=== PATIENT | female | born 1975 | race Caucasian/White ===

== ENCOUNTER 2024-07-14 21:35 | Emergency (ER) | payer OTHER, SELFPAY ==
[2024-07-14 21:46] VITALS: BP 166/83; PULSE 71; RESP 18; TEMP 36.7; O2SAT 99; BMI 32.3
--- NOTE | 2024-07-14 21:47 | ED_ITS ---
HPI - Extremity Injury (Upper) General Chief Complaint: Extremity Pain/Injury, Upper Stated Complaint: fall, right arm pain Time Seen by Provider: 07/14/24 21:46 History of Present Illness HPI narrative: This 48-year-old female comes in with an injury to her right wrist. She fell onto her outstretched arm and is complaining pain at the right wrist joint. She has not have any other injury. She did not hit her head or have loss of consciousness. Related Data Home Medications ?Medication ?Instructions ?Recorded ?Confirmed No Known Home Medications 07/14/24 07/14/24 Allergies Allergy/AdvReac Type Severity Reaction Status Date / Time NSAIDS (Non-Steroidal Allergy Intermediate Facial Verified 07/14/24 21:48 Anti-Inflamma Swelling Review of Systems Status of ROS: Reports: 10 or more systems reviewed and unremarkable except as noted in History and below Narrative: Constitutional: No fevers, no weight gain or loss. Eyes: No discharge. No vision changes. HENT: No congestion, no sore throat, no ear pain. Cardiovascular: No chest pain, no palpitations. Respiratory: No shortness of breath, no wheezes, no cough. Gastrointestinal: No abdominal pain, no vomiting, no diarrhea. Genitourinary: No dysuria, no hematuria. Musculoskeletal: Right wrist injury. Skin: No rashes, no pruritis. Neurological: No dizziness, weakness, sensory change, speech change. Endo/Heme/Allergies: No bruising or bleeding. No polydipsia. Pysch: no suicidality, no anxiety, no insomnia. All other systems reviewed and are negative. [facility] Social History Smoking Status: Never smoker Second hand tobacco smoke exposure: No How often do you have a drink containing alcohol: never AUDIT-C Alcohol total score: 0 Non-prescribed substance use: denies use Exam Narrative: Exam Narrative: Constitutional: Well-developed, well-nourished, no acute distress. HEENT: Normocephalic, atraumatic. Neck: Normal range of motion. Nontender. Supple. Heart: Intact distal pulses. Lungs: No chest discomfort. No wheezes, rhonchi, or rales. Abdomen: Nontender. Back: Normal range of motion. Extremities: Diffuse tenderness with mild swelling in the right wrist joint area. No sign of deformity. Skin: Intact. No rash. Warm. No erythema or pallor. Neurologic: No altered sensation. No weakness. Alert and oriented. Psychiatric: No suicidality. No anxiety or depression. No insomnia. Nursing notes and vitals signs are reviewed. Const: Vital Signs, click to edit/add: Vital Signs - 24 hr 07/14/24 21:46 07/14/24 22:45 Temperature 98.0 F 98.0 F Pulse Rate [Right Pulse Oximeter] 71 74 Respiratory Rate 18 18 Blood Pressure [Le ft Upper Arm] 166/83 H 155/78 H Pulse Oximetry 99 99 Oxygen Delivery Me thod Room Air Room Air Course Vital Signs Vital signs: Initial Vital Signs Temperature 98.0 F 07/14/24 21:46 Temperature Source Temporal Artery Scan 07/14/24 21:46 Pulse Rate 71 07/14/24 21:46 Respiratory Rate 18 07/14/24 21:46 Blood Pressure 166/83 H 07/14/24 21:46 Blood Pressure Mean 110 H 07/14/24 21:46 Blood Pressure Position Sitting 07/14/24 21:46 Pulse Oximetry 99 07/14/24 21:46 Oxygen Delivery Method Room Air 07/14/24 21:46 Vital Signs Temperature 98.0 F 07/14/24 21:46 Pulse Rate 71 07/14/24 21:46 Respiratory Rate 18 07/14/24 21:46 Blood Pressure 166/83 H 07/14/24 21:46 Pulse Oximetry 99 07/14/24 21:46 Oxygen Delivery Method Room Air 07/14/24 21:46 Temperature 98.0 F 07/14/24 22:45 Pulse Rate 74 07/14/24 22:45 Respiratory Rate 18 07/14/24 22:45 Blood Pressure 155/78 H 07/14/24 22:45 Pulse Oximetry 99 07/14/24 22:45 Oxygen Delivery Method Room Air 07/14/24 22:45 MDM - Extremity Injury (Upper) MDM Narrative Medical decision making narrative: This patient comes in with an injury to her right wrist. X-ray images are obtained and by my review and with radiology report show no sign of fracture or deformity. The patient is reassured with these results. She did receive a wrist splint and is encouraged to use [id number] medicines as needed and directed. Discharge Plan Discharge Clinical Impression: Sprain and strain of wrist Additional Instructions: Wear wrist splint as needed and increase activity as tolerated. Use tanw-mdt-bouters medicines as needed and directed. Follow up with MD return if worsening. Prescriptions: No Action No Known Home Medications Follow Up/Referrals: Provider,Not a Local [Primary Care Provider] -
--- NOTE | 2024-07-14 21:58 | CRLHL7_ITS ---
For Patients: As a result of the Century Cures Act, medical imaging exams and procedure reports are released immediately into your electronic medical record. You may view this report before your referring provider. If you have questions, please contact your health care provider. Indication: Injury and pain Technique: Right wrist 3 view Comparison: None Findings: Bones: Alignment is normal. No fractures or bone lesions. Joint spaces: Mild 1st carpometacarpal arthrosis. Soft tissues: Unremarkable. Impression: No sign of acute injury in the right wrist. Dictated by Jesus Hargrove MD @ 07/14/2024 10:18:45 PM (Electronically Signed)
[2024-07-14 22:45] VITALS: BP 155/78; PULSE 74; RESP 18; TEMP 36.7; O2SAT 99
--- OUTSIDE RECORDS SUMMARY | 2024-07-14 22:46 | XMS_ITS | Data Portability ---
Author Organization [facility] Address [address] [place] [address] [place] [address] Assessment No assessment recorded. Plan of Treatment Reminders Order Date Submit Date Provider Last Modified By Organization Details Last Modified Time Details Appointments None recorde d. Lab lipid panel, serum 2022 023 ETTA Not available 3 11:27:38 fecal occult blood, stool 2022 023 ETTA Not available 4 20:39:08 CMP, serum or plasma 2022 023 ETTA Not available 3 11:27:38 HbA1c (hemogl obin A1c), blood 2022 023 ETTA Not available 3 14:17:22 glycohe moglobi n, total, blood 2023 024 ETTA Not available 4 13:29:55 pap, LB + HR HPV 2023 024 ETTA Not available 4 14:39:[address] l therapi st referra l 2022 023 [email or web address] Not available 3 03:34:11 Procedures None recorde d. Surgeries None recorde d. Imaging MAMMO, screeni itz villegas al 2023 024 [email or web address] Not available 4 10:14:08 Medication Orders prednis one 10 mg tablet 2022 023 [facility], [address] [place] [address], [id number], 3 14:14:47 Patient TargetsNo targets recorded. Patient InstructionsNo instructions recorded. Reason for Referral Physical Therapist Referral for Thoracic back pain Referring Physician: [facility], Encounter Date: 07/06/2023 Results Created Date Observation Date Name Description Value Unit Range Abnormal Flag Note LastModifiedBy Organization Detail LastModifiedTime Result Notes None recorded. Problems Name Problem SNOMED Code Status Onset Date Resolution Date Notes Provider Name and Address Organization Details Recorded Time Asthma 897299052 Completed 202207/06/[address] Presley [address] [place] [address], [phone], [facility] 12:54:54 Allergic rhinitis 14262643 Active 2022 PAM Presley [address] [place] [address], [phone], [facility] 12:55:08 Problem Notes None recorded. Procedures Surgical History Date Name Laterality Status Provider Name and Address Organization Details Recorded Time 2 Date of Last Pap Smear completed [facility] [address] [place] [address], [phone], [facility] 07/06/2023 12:56:40 1 Date of Last [place]ammogram [place], [phone], [facility] 07/06/2023 12:57:23 Breast Biopsy completed PAM Presley [address] [place] [address], [phone], [facility] 07/06/2023 12:55:47 Imaging Results None recorded. Procedure Notes None recorded. Medical Equipment None Reported. Allergies Allergen ID Allergen Name Allergen Category Reaction Reaction Severity Criticality Documentation Date Start Date Code Code System Note Provider Name and Address Organization Details Recorded Time 2623 Non-stero idal anti-infl ammatory agent (product) medicatio n Not available Not available Not available 07/06/2023 02591 005 SNOMED PAM Presley [address] [place], [phone], [facility] 3 12:53:45 2624 tree and shrub pollen environme nt,medica tion Not available Not available Not available 07/06/2023 PAM Presley [address] [place], [phone], [facility] 3 12:54:13 Medications Name Sig Start Date Stop Date Status Note LastModified by Organization Details LastModified Time prednisone 10 mg tablet Take 5 pills days 1,2; 4 pills days 3,4; 3 pills days 5,6, 2 pills days 7,8 and 1 pill days 9, 10 023 active Not Available Not Available Not Avai lable Vitals Date Recorded Body height Body mass index (BMI) Body weight Oxygen saturation Oxygen saturation in Arterial blood by Pulse oximetry Heart rate Provider Name and Address Organization Details Last Updated DateTime 3 150.5 cm 14 kg/m2 64409.7 5 g 99 % 99 % 65 /min PAM Presley [address] [place], [phone], [facility] 3 12:52:16 Date Recorded Body height Body mass index (BMI) Body weight Respiratory rate Body temperature Oxygen saturation Oxygen saturation in Arterial blood by Pulse oximetry Heart rate Systolic blood pressure Diastolic blood pressure Provider Name and Address Organization Details Last Updated DateTime 4 150.5 cm 34.7 kg/m2 69331.2 g 22 /min 97.1 [degF] 99 % 99 % 74 /min 129 mm[Hg] 87 mm[Hg] Gilma Michaud [facility] 4 17:03:33 Social History Question Answer Notes LastModified by Organizat ion Details LastModified Time Are You Currently Employed? Yes Information not available 07/06/2023 Do You Feel Safe At Home? Yes Information not available 07/06/2023 How Many Children Do You Have? 2 Information not available 07/06/2023 Do You Have Any Pets? No Information not available 07/06/2023 What Is Your Relationship Status? Information not available 07/06/2023 Are You Sexually Active? Yes Information not available 07/06/2023 Are You Passively Exposed To Smoke? No Information no t available 07/06/2023 Sex: Unknown Functional Status None recorded. Mental Status None recorded. Family History Relationship Description Onset Age of this Age Resolved Age Notes LastModified by Organization Details LastModified Time Mother Hypertensive disorder [email or web address] Not available 2022 13:00:20 Mother Diabetes mellitus [email or web address] Not available 2022 13:00:28 Mother Cerebrovascu lar accident [email or web address] Not available 13:00:55 Father Cerebrovascu lar accident [email or web address] Not available 13:00:55 Medical History No medical history recorded. Gynecological History Statement/Question Response Abnormal Pap N Date of Last Mammogram 09/07/2020 Date of LMP 05/09/2023 Sexually Active? N Menses Monthly N Date of Last Pap Smear 05/08/2022 Age at First Child 16 LMP Approximate Obstetrics History GPAL:G 2 P 2 0 0 2 Type Value Full Term 2 Living 2 Total 2 Past Encounters Encounter ID Performer Location Encounter Start Date Encounter Closed Date Diagnosis/Indication Diagnosis SNOMED-CT Code Diagnosis ICD10 Code [id number] P[facility] Presley [address] [address] [place] [address] 07/06/2023 12:41:48 07/06/2023 13:31:29 Thoracic back pain 746566143 M54.6 Hyperlipid emia screening 622572486 Z13.220 Diabetes m ellitus screening 078454971 Z13.1 Screening for malignant neoplasm of colon 262262807 Z12.11 [id number] P[facility] Presley [address] [address] [place] [address] 09/28/2023 16:57:45 09/28/2023 17:34:26 Screening for malignant neoplasm of cervix 322457657 Z12.4 Screening for malignant neoplasm of breast 036033663 Z12.39 Prediabetes 029870808 R7 3.03 Health Concerns Section Related Observation LastModified by Organization Detai ls LastModified Time None Recorded Concern Status LastModified by Organization Details LastModified Time None Recorded Advance Directives Directive None Recorded Payers Encounter Date Sequence Insurance Name Policy Number Policy [place] Covered Member ID Robledo Member ID Guarantor Name 07/06/2023 SLIDING FEE SCHEDULE - DISCOUNT Luis Eduardo Rivas 09/28/2023 [employer] SCREENING PROGRAM - [place] [employer] Luis Eduardo Rivas [id number] Luis Eduardo Rivas Notes Date Note Type Note Provider Name and Address Organization Details Recorded Time 07/06/2023 text/html HPI Notes: Pt he re today for evaluation of: back pain First visit at [facility] Pt reports having upper back pain, particularly on the right side. 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 Minimal neck involvement but does have some tenderness on the right side Does notice getting some bilateral paresthesias of the hands on occasion but not currently Is unable to take NSAIDS 2/2 allergy, but takes acetaminophen which doesn't really help much; Has used OTC pain patches which doesn't help much either Went to chiropractor but wasn't helpful Has not tried massage, hot packs No hx of accident, fall, etc preventative health: - cervical ca screening: Due, last done in (1-2 years ago? Unsure, would like to repeat here) - breast ca screening: Due, last done in (2 years ago?) - colon ca screening: Due - Cholesterol screening: Due - DM screening: due PAM Presley [address] [place], [phone], [facility] 07/08/2023 12:37:48 09/28/2023 text/html HPI Notes: Pt he re today for [employer] Unsure of when last Pap was Denies vaginal sxs No breast symptoms NO reproductive cancers in family preventative health: - cervical ca screening: Due, last done in [place] (1-2 years ago? Unsure) - breast ca screening: Due, last done in (2 years ago?) - colon ca screening: Done 07/2023; due 07/2024 - Cholesterol screening: up to date; done 07/30 - DM screening: Done 07/2023; A1C 5.7 PAM Presley [address] [place], [address], [facility] 09/29/2023 19:17:18 OBGyn Episode No OBEpisode recorded.
[2024-07-14 23:03] VITALS: BP 155/78; PULSE 74; RESP 18; TEMP 36.7
== END 2024-07-14 23:04 | disposition home or self-care (01) ==
PROVIDERS: Emergency Provider Emergency Medicine Emergency Medical Services
DX: M25.531 Pain in right wrist (principal); W18.30XA Fall on same level, unspecified, initial encounter
CPT/HCPCS: 29125; 73110; 99283; 99284